=== PATIENT | female | born 2000 | race Caucasian/White ===

== ENCOUNTER 2023-06-03 07:33 | Day surgery (SDC) | payer OTHER ==
[~2023-06-03] VITALS: Ht 170.2 cm; Wt 68.9 kg
[2023-06-03] MEDS ORDERED: BENZOCAINE 20% 0.5mL UD SPRAY MM ONE (07:39)
[2023-06-03] MEDS ORDERED: MEPERIDINE 100 MG INJ. 100 MG/ML VIAL ONE (07:49)
[2023-06-03] MEDS ORDERED: MIDAZOLAM HCL 5 MG/5 ML VIAL ONE (07:50)
[2023-06-03 08:13] LABS: HCG,QUAL RESULT NEGATIVE (NEGATIVE)
[2023-06-03] MEDS ORDERED: DIPHENHYDRAMINE INJ 50 MG/ML VIAL ONE (09:07)
[2023-06-03] MEDS ORDERED: ONDANSETRON HCL 4 MG/2 ML VIAL ONE (09:29)
[2023-06-03 10:55] VITALS: O2SAT 100
[2023-06-03 14:10] VITALS: BP_SYST 121; PULSE 88; RESP 27
== END 2023-06-03 10:15 | disposition home or self-care (01) ==
LOC: SDS 07:33 → SMU 07:34 → SDS 10:15
PROVIDERS: ATTEND Internal Medicine
DX: R10.9 Unspecified abdominal pain (principal); K29.50 Unspecified chronic gastritis without bleeding; K21.9 Gastro-esophageal reflux disease without esophagitis; K44.9 Diaphragmatic hernia without obstruction or gangrene; F17.210 Nicotine dependence, cigarettes, uncomplicated
CPT/HCPCS: 43239; 99152; 84703; 88305; 88312; 88313; G0378; J1200; J2250; J2405; J2175